=== PATIENT | female | born 1985 | race Caucasian/White ===

== ENCOUNTER 2016-10-02 12:57 | Emergency (ER) | payer OTHER ==
--- NOTE | 2016-10-02 13:18 | ED ---
Wound/Laceration HPI - General Chief Complaint: Wound/Laceration Stated Complaint: Arm Laceration Time Seen by Provider: 10/02/16 13:03 Source: patient Mode of arrival: ambulatory Limitations: no limitations - History of Present Illness Initial Comments: 31-year-old female presenting for evaluation of laceration of the right forearm. She states that she was cooking in the kitchen and was rushing and fell. As she reached out her arm to grab herself she scraped it along the inside surface of her drawer where a sharp piece of metal has been sticking out for some time. As she fell and she also dropped some plates and landed on top of them. The only wound that she has is a laceration to the right forearm. There is a small piece of the plate in the laceration as well. Bleeding was only controlled upon arrival to the ED. She states her tetanus status is up-to- date. She denies any weakness, decreased sensation, or discoloration to the hand distal to the laceration. - Related Data Home Medications Medication Instructions Recorded Confirmed Ibuprofen [Motrin] 600 mg PO Q8HR PRN 10/02/16 10/02/16 Allergies Allergy/AdvReac Type Severity Reaction Status Date / Time naproxen [From Naprosyn] Allergy Nausea & Verified 10/02/16 13:21 Vomiting Review of Systems ROS Statement: Those systems with pertinent positive or pertinent negative responses have been documented in the HPI. ROS Other: All systems not noted in ROS Statement are negative. Constitutional: Denies: fever, chills Eyes: Denies: eye pain, eye discharge ENT: Denies: ear pain, throat pain Respiratory: Denies: cough, dyspnea Cardiovascular: Denies: chest pain, palpitations Gastrointestinal: Denies: abdominal pain, nausea, vomiting Genitourinary: Denies: urgency, dysuria Musculoskeletal: Denies: back pain, arthralgia Skin: Reports: other (Right medial forearm). Denies: rash Neurological: Denies: headache, weakness Psychiatric: Denies: anxiety, depression Hematological/Lymphatic: Denies: easy bleeding, easy bruising Past Medical History Past Medical History: No Reported History Additional Past Medical History / Comment(s): herpes History of Any Multi-Drug Resistant Organisms: None Reported Past Surgical History: Section Past Psychological History: ADD/ADHD, Anxiety, Depression Smoking Status: Current every day smoker Past Alcohol Use History: None Reported Past Drug Use History: Marijuana General Exam Limitations: no limitations General appearance: alert, in distress (Emotional) Head exam: Present: atraumatic, normocephalic, normal inspection Eye exam: Present: normal appearance, PERRL, EOMI. Absent: scleral icterus, conjunctival injection, periorbital swelling ENT exam: Present: normal exam, mucous membranes moist Neck exam: Present: normal inspection. Absent: tenderness, meningismus, lymphadenopathy Respiratory exam: Present: normal lung sounds bilaterally. Absent: respiratory distress, wheezes, rales, rhonchi, stridor Cardiovascular Exam: Present: regular rate, normal rhythm, normal heart sounds. Absent: systolic murmur, diastolic murmur, rubs, gallop, clicks GI/Abdominal exam: Present: soft, normal bowel sounds. Absent: distended, tenderness, guarding, rebound, rigid Rectal exam: Present: deferred Extremities exam: Present: normal inspection, full ROM, normal capillary refill. Absent: tenderness, pedal edema, joint swelling, calf tenderness Back exam: Present: normal inspection Neurological exam: Present: alert, oriented X3, CN II-XII intact, normal gait. Absent: motor sensory deficit Psychiatric exam: Present: normal affect, normal mood Skin exam: Present: warm, dry, other (3 cm) Course Vital Signs 10/02/16 12:58 Temperature 97.7 F Pulse Rate 100 Respiratory 22 Rate Blood Pressure 123/70 O2 Sat by Pulse 98 Oximetry Medical Decision Making - Medical Decision Making 31-year-old female presented for evaluation of laceration to right forearm. Laceration is straight and there is a small foreign body of a dish inside the wound. This was removed without any difficulty and x-ray revealed no further foreign bodies inside the arm. Tetanus status is up-to-date. She is neurovascularly intact distal to the injury and there are no sensory or motor deficits. She has a strong radial and ulnar pulses and there is no discoloration to the hand. Wound was rinsed with 500 mL normal saline and cleaned with iodine. 9 stitches were placed with close approximation and without difficulty/Location. Patient was given instructions on stitch care and to follow-up with either her primary care physician or come back to the ED in 7- 10 days for suture removal. She was further advised to return if there should be any consultations from her stitches including abscess formation, cellulitis, rupture of stitches. The patient acknowledged an understanding of this information and agreed with this plan of care. Disposition Clinical Impression: Laceration Disposition: HOME SELF-CARE Condition: Stable Instructions: Care For Your Stitches (ED), Laceration (ED) Time of Disposition: 14:29
--- NOTE | 2016-10-02 13:42 | XR ---
EXAMINATION TYPE: XR forearm RT DATE OF EXAM: 10/02/2016 1:37 PM COMPARISON: NONE HISTORY: Forearm injury TECHNIQUE: 2 views FINDINGS: I see no fracture nor dislocation. Elbow joint and wrist joint appear intact. IMPRESSION: Negative right forearm exam for fracture. Laceration deformity noted on the posterior mid ulna.
[2016-10-02 14:53] VITALS: BP 99/54; PULSE 57; RESP 16; TEMP 97
== END 2016-10-02 14:53 | disposition home or self-care (01) ==
LOC: EC 12:57
DX: S51.821A Laceration with foreign body of right forearm, initial encounter (principal); Z88.6 Allergy status to analgesic agent; F17.200 Nicotine dependence, unspecified, uncomplicated; W45.8XXA Other foreign body or object entering through skin, initial encounter; Y93.89 Activity, other specified; Y92.89 Other specified places as the place of occurrence of the external cause
CPT/HCPCS: 12032; 99283

== ENCOUNTER 2016-10-31 19:10 | Emergency (ER) | payer OTHER ==
[2016-10-31 19:31] VITALS: BP 109/62; PULSE 70; RESP 18; TEMP 97.7
--- NOTE | 2016-10-31 19:35 | ED ---
ENT HPI - General Chief complaint: Dental/Oral Stated complaint: dental pain Time Seen by Provider: 10/31/16 19:29 Source: patient, RN notes reviewed Mode of arrival: ambulatory Limitations: no limitations - History of Present Illness Initial comments: 31-year-old female presents emergency Department chief complaint dental pain. Patient states she has very poor dentition states that she's had multiple broken teeth. Patient states her last few days she's had increasing pain. Patient's concerned about possible infection she states she feels some swelling in that region. Denies fever or chills. Denies any neck stiffness or headache. Patient states she's been taking ibuprofen with no relief. Patient states she does not have dental insurance. - Related Data Home Medications Medication Instructions Recorded Confirmed Ibuprofen [Motrin] 600 mg PO Q8HR PRN 10/02/16 10/02/16 Previous Rx's Medication Instructions Recorded Penicillin V Potassium [Pen Vee K] 500 mg PO QID #40 tab 10/31/16 traMADol HCl [Ultram] 50 mg PO Q6H PRN #20 tab 10/31/16 Allergies Allergy/AdvReac Type Severity Reaction Status Date / Time naproxen [From Naprosyn] Allergy Nausea & Verified 10/31/16 19:31 Vomiting Review of Systems ROS Statement: Those systems with pertinent positive or pertinent negative responses have been documented in the HPI. ROS Other: All systems not noted in ROS Statement are negative. Past Medical History Past Medical History: No Reported History Additional Past Medical History / Comment(s): herpes, head injury 2013 History of Any Multi-Drug Resistant Organisms: None Reported Past Surgical History: Section Past Psychological History: ADD/ADHD, Anxiety, Depression Smoking Status: Current every day smoker Past Alcohol Use History: None Reported Past Drug Use History: Marijuana General Exam Limitations: no limitations General appearance: alert, in no apparent distress Head exam: Present: atraumatic, normocephalic, normal inspection Eye exam: Present: normal appearance, PERRL, EOMI. Absent: scleral icterus, conjunctival injection, periorbital swelling ENT exam: Present: mucous membranes moist. Absent: normal exam, normal oropharynx (Edentulous, multiple dental caries dental fractures noted no drainable abscess is mild swelling to the left lower jawline) Neck exam: Present: normal inspection, full ROM. Absent: tenderness, meningismus, lymphadenopathy Respiratory exam: Present: normal lung sounds bilaterally. Absent: respiratory distress, wheezes, rales, rhonchi, stridor Cardiovascular Exam: Present: regular rate, normal rhythm, normal heart sounds. Absent: systolic murmur, diastolic murmur, rubs, gallop, clicks Course Vital Signs 10/31/16 19:29 Temperature 97.7 F Pulse Rate 70 Respiratory 18 Rate Blood Pressure 109/62 O2 Sat by Pulse 99 Oximetry Medical Decision Making - Medical Decision Making 31-year-old female presented for dental pain. Patient has multiple dental fractures. Patient was placed on antibiotics at this time. Concern for possible infection. Patient will be given tramadol for pain she'll be follow- up with dental clinic or [facility]. Disposition Clinical Impression: Dental caries, Fracture of tooth, Toothache Disposition: HOME SELF-CARE Condition: Stable Instructions: Toothache (ED) Additional Instructions: Please return to the Emergency Department if symptoms worsen or any other concerns.Please follow up with the [facility] dental [facility]. [facility] [place] [address]. Phone number for new patients or [phone] for existing patients. Prescriptions: Penicillin V Potassium [Pen Vee K] 500 mg PO QID #40 tab traMADol HCl [Ultram] 50 mg PO Q6H PRN #20 tab PRN Reason: Pain Referrals: Gloria Alex MD [Primary Care Provider] - 1-2 days Time of Disposition: 19:35
== END 2016-10-31 19:47 | disposition home or self-care (01) ==
LOC: EC 19:10
DX: K02.9 Dental caries, unspecified (principal); K03.81 Cracked tooth; F17.200 Nicotine dependence, unspecified, uncomplicated; Z88.8 Allergy status to other drugs, medicaments and biological substances
CPT/HCPCS: 99282